=== PATIENT | female | born 1995 | race Caucasian/White ===

== ENCOUNTER → 2018-07-23 | Outpatient (CLI) | payer BC ==
--- NOTE | 2018-07-23 17:15 | RAD ---
PELVIS W/TV History: Spontaneous 2 months ago, pelvic pain Comparison: None. Findings: Multiple transabdominal sonographic images of pelvis are submitted. Uterus measured about 6.2 x 2.6 x 4.9 cm. Transvaginal ultrasound: Multiple transvaginal sonographic images of the pelvis are submitted. Endometrium measured 0.4 cm in thickness. Right ovary measured 2.2 x 2.2 x 3.8 cm with normal low resistance vascularity. Left ovary measured 1.6 x 2.1 x 3.3 cm with normal low resistance vascularity color flow. No free fluid is demonstrated. Impression: 1. No significant abnormality is demonstrated. Electronically signed by: Nico Aj MD (07/23/2018 5:12 PM) [id number]
== END | disposition home or self-care (01) ==
LOC: US 14:12
PROVIDERS: ATTEND Physician Assistant Surgical
DX: O03.9 Complete or unspecified spontaneous abortion without complication (principal)
CPT/HCPCS: 76830; 76856